=== PATIENT | female | born 1930 | race Caucasian/White ===

== ENCOUNTER 2018-09-06 10:42 | Emergency (ER) | payer MEDICARE, OTHER ==
[~2018-09-06] VITALS: Ht 160 cm; Wt 64.9 kg
[~2018-09-06 10:42] MED LIST: ALBU90I; ALBU90OI INH; ALIS150T PO; AMLO10 PO; ASPI81CH; ASPI81CH PO; ASPI81EC PO; AZIT250 PO; BISA10S PR; CARV6.25 PO; DIGO.125 PO; DIPH50 PO; DOCU100 PO; DOXA4; DOXA4 PO; ERGO400 PO; ERGO50000 PO; FERR325 PO; FURO40 PO; GLUCHON PO; GUAI100SY PO; Garlic Oil1000 MG PO; IPRAOI INH; LEVSOD100 PO; LEVSOD125 PO; LEVSOD50 PO; LIOT25 PO; LORA10ER PO; LOSA25 PO; MAGCHL64ER PO; MAGOXI400 PO; MECL12.5 PO; METO25ER; METO25ER PO; METO50 PO; NEBI10 PO; NITR.4SL SL; OLME40 PO; OLME5TAB PO; ONDA4 PO; ONDA8ODT MM; POLY17UD PO; POTCHL20ER PO; PRAV20 PO; PRED20 PO; RXONDA4ODT MM; SPIR25 PO; THYR60; THYR60 PO; Tylenol325 MG PO; VITAMIN D2000 UNIT PO; XARELTO PO; XARELTO15 MG PO
== END 2018-09-06 13:15 | disposition home or self-care (01) ==
LOC: ER 10:42
DX: I10 Essential (primary) hypertension (principal); I48.91 Unspecified atrial fibrillation; Z88.5 Allergy status to narcotic agent; Z88.8 Allergy status to other drugs, medicaments and biological substances; Z88.0 Allergy status to penicillin; Z91.048 Other nonmedicinal substance allergy status; Z79.899 Other long term (current) drug therapy
CPT/HCPCS: 93005; 93010; 99283-25

== ENCOUNTER → 2019-01-12 | Outpatient (CLI) | payer MEDICARE, OTHER | END | disposition home or self-care (01) | LOC: LAB SHORT 14:10 → LAB EV 14:10 | DX: R10.30 Lower abdominal pain, unspecified (principal) | CPT/HCPCS: 87086 ==

== ENCOUNTER → 2019-01-14 | Outpatient (CLI) | payer MEDICARE, OTHER | END | disposition home or self-care (01) | LOC: LAB 11:22 → LAB SHORT 11:22 → LAB FUT 01-15 10:55 → EDSTATUS 01-15 10:55 | DX: R10.30 Lower abdominal pain, unspecified (principal) | CPT/HCPCS: 87086 ==

== ENCOUNTER → 2019-06-13 | Outpatient (CLI) | payer MEDICARE, OTHER ==
[2019-06-13 13:43] LABS: BASOPHILS ABSOLUTE AUTO 0.01 K/mm3 (0.00-0.23); BASOPHILS PERCENT AUTO 0 % (0-2); EOSINOPHILS ABSOLUTE AUTO 0.08 K/mm3 (0.00-0.68); EOSINOPHILS PERCENT AUTO 1 % (0-6); Hematocrit 40.8 % (33.0-51.0); Hemoglobin 13.5 g/dL (11.5-16.0); IMMATURE GRAN ABSOLUTE AUTO 0.04 K/mm3 (0.00-0.10); IMMATURE GRAN PERCENT AUTO 1 % (0-1); LYMPHOCYTES ABSOLUTE AUTO 0.83 K/mm3 (0.84-5.20); LYMPHOCYTES PERCENT AUTO 15 % (21-46); MONOCYTES ABSOLUTE AUTO 0.53 K/mm3 (0.16-1.47); MONOCYTES PERCENT AUTO 9 % (4-13); Mean Corpuscular HGB 31.6 pg (26.0-34.0); Mean Corpuscular HGB Conc 33.1 g/dL (31.5-36.5); Mean Corpuscular Volume 96 fL (80-100); Mean Platelet Volume 11.9 fL (9.1-12.4); NEUTROPHILS ABSOLUTE AUTO 4.22 K/mm3 (1.96-9.15); NEUTROPHILS PERCENT AUTO 74 % (41-73); Platelet Count 121 K/mm3 (150-400); RDW Coefficient Variation 14.4 % (11.7-14.2); RDW Standard Deviation 49.7 fL (35.1-46.3); Red Blood Cell Count 4.27 M/mm3 (3.80-5.20); White Blood Cell Count 5.71 K/mm3 (4.00-11.30)
[2019-06-13 13:49] LABS: Bun/Creatinine Ratio 17.1 (12.0-20.0); Calcium, Blood 8.7 mg/dL (8.5-10.1); Creatinine, Blood 1.17 mg/dL (0.40-1.00); Potassium, Blood 3.7 mmol/L (3.5-5.5)
== END | disposition home or self-care (01) ==
LOC: LAB SHORT 13:39 → LAB EV 13:39
PROVIDERS: Family Medicine
DX: R04.2 Hemoptysis (principal)
CPT/HCPCS: 80048; 85025; 85379

== ENCOUNTER 2019-11-09 15:14 | Emergency (ER) | payer MEDICARE, OTHER ==
[~2019-11-09] VITALS: Ht 160 cm; Wt 59.0 kg
[2019-11-09 16:26] LABS: Hemoglobin 14.2 g/dL (11.5-16.0); Mean Corpuscular HGB 31.6 pg (26.0-34.0); Mean Corpuscular Volume 96 fL (80-100); Platelet Count 113 K/mm3 (150-400); RDW Coefficient Variation 13.3 % (11.7-14.2); RDW Standard Deviation 47.6 fL (35.1-46.3); White Blood Cell Count 6.38 K/mm3 (4.00-11.30)
[2019-11-09 16:48] LABS: International Normalized Ratio 1.12; Prothrombin Time Results 11.9 Sec (9.7-11.5)
[2019-11-09 16:52] LABS: Bun/Creatinine Ratio 26.9 (12.0-20.0); Calcium, Blood 10.1 mg/dL (8.5-10.1); Creatinine, Blood 1.34 mg/dL (0.40-1.00); Potassium, Blood 3.5 mmol/L (3.5-5.5)
[2019-11-09 17:09] LABS: BASOPHILS PERCENT MAN 0 % (0-2); EOSINOPHILS ABSOLUTE MAN 0.19 K/mm3 (0.00-0.68); EOSINOPHILS PERCENT MAN 3 % (0-6); LYMPHOCYTES % ATYPICAL MANUAL 1 % (0-0); LYMPHOCYTES ABSOLUTE MAN 1.27 K/mm3 (0.84-5.20); LYMPHOCYTES PERCENT MAN 19 % (21-46); MONOCYTES ABSOLUTE MAN 0.63 K/mm3 (0.16-1.47); MONOCYTES PERCENT MAN 10 % (4-13); MYELOCYTE ABSOLUTE MAN 0.06 K/mm3 (0.00-0.00); MYELOCYTE PERCENT MAN 1 % (0-0); NEUTROPHILS ABSOLUTE MAN 4.21 K/mm3 (1.96-9.15); SEG NEUTROPHILS PERCENT MAN 66 % (41-73); TOTAL CELLS COUNTED 100
--- NOTE | 2019-11-09 18:48 | NUR ---
ED Palliative Care Consult Spoke with Dr Sandhu and MALIHA Kunz. Discussed case and concerns. Pt had a fall and fracture left lower rib. Pt does not meet admitting criteria and would benefit from assistance in the home. Pt is A&O and reports significant pain. Engaged in therapeutic listening as Pt expresses concerns regarding her increased weakness and difficulty caring for herself. Pt reports being on a limited income and can not afford to higher caregivers. Pt is interested in receiving extra support in her home for her safety. Due to her increased weakness and falling, Pt needs assistance with ambulation, dressing, and bathing. Pt is no longer safe to perform these duties on her own. Provided check list and phone number for Aging People with Disabilities. Recieved permission from Pt to call her niece Eboni. Eboni reports having a spare room at her home for Pt until caregiving assistance can be established. Eboni will also help with Pt's needs and help her start the APD process. Pt is agreeable to Eboni's offer. No other concerns reported at this time. Eboni's phone number is [phone] Sandhu regarding Pt's pain. Pt will be provided a prescription for pain medication to take home. Palliative Care will remain available.
[2019-11-09] MEDS ORDERED: Ultram50 MG PO (18:56)
== END 2019-11-09 19:30 | disposition home or self-care (01) ==
LOC: ER 15:14
PROVIDERS: Emergency Medicine
DX: M25.512 Pain in left shoulder (principal); I10 Essential (primary) hypertension; I25.2 Old myocardial infarction; I48.91 Unspecified atrial fibrillation; Z88.0 Allergy status to penicillin; Z88.5 Allergy status to narcotic agent; Z91.048 Other nonmedicinal substance allergy status; Z88.6 Allergy status to analgesic agent; Z79.899 Other long term (current) drug therapy; W06.XXXA Fall from bed, initial encounter
CPT/HCPCS: 36415; 70450; 71101; 72170; 73030; 80048; 85025; 85610; 93005; 93010; 99284-25

== ENCOUNTER 2020-05-17 15:02 | Emergency (ER) | payer MEDICARE, OTHER ==
[~2020-05-17] VITALS: Ht 160 cm; Wt 54.4 kg
[~2020-05-17 15:02] MED LIST changes: +Ultram50 MG PO
[2020-05-17 17:25] LABS: BASOPHILS ABSOLUTE AUTO 0.03 K/mm3 (0.00-0.23); BASOPHILS PERCENT AUTO 0 % (0-2); EOSINOPHILS ABSOLUTE AUTO 0.18 K/mm3 (0.00-0.68); EOSINOPHILS PERCENT AUTO 2 % (0-6); Hematocrit 46.6 % (33.0-51.0); Hemoglobin 15.2 g/dL (11.5-16.0); IMMATURE GRAN ABSOLUTE AUTO 0.04 K/mm3 (0.00-0.10); IMMATURE GRAN PERCENT AUTO 1 % (0-1); LYMPHOCYTES PERCENT AUTO 12 % (21-46); MONOCYTES ABSOLUTE AUTO 0.77 K/mm3 (0.16-1.47); MONOCYTES PERCENT AUTO 9 % (4-13); Mean Corpuscular HGB 30.9 pg (26.0-34.0); Mean Corpuscular HGB Conc 32.6 g/dL (31.5-36.5); Mean Corpuscular Volume 95 fL (80-100); Mean Platelet Volume 11.9 fL (9.1-12.4); NEUTROPHILS ABSOLUTE AUTO 6.72 K/mm3 (1.96-9.15); NEUTROPHILS PERCENT AUTO 76 % (41-73); Platelet Count 107 K/mm3 (150-400); RDW Coefficient Variation 13.2 % (11.7-14.2); RDW Standard Deviation 46.6 fL (35.1-46.3); Red Blood Cell Count 4.92 M/mm3 (3.80-5.20); White Blood Cell Count 8.84 K/mm3 (4.00-11.30)
[2020-05-17 17:44] LABS: Alanine Aminotransfer (ALT/SGP 13 U/L (12-78); Albumin, Blood 3.5 g/dL (3.4-5.0); Albumin/Globulin Ratio 0.9 (0.8-1.8); Alk Phos 77 U/L (50-136); Anion Gap 7 mmol/L (6-16); Aspartate Aminotrans (AST/SGOT 30 U/L (12-37); Bilirubin, Total 3.5 mg/dL (0.1-1.0); Blood Urea Nitrogen 23 mg/dL (8-24); Bun/Creatinine Ratio 25.1 (12.0-20.0); CO2, Blood 24 mmol/L (21-32); Chloride, Blood 103 mmol/L (98-108); Creatinine, Blood 0.92 mg/dL (0.40-1.00); Globulin, Blood 4.1 g/dL (2.2-4.0); Glomerular Filtration Rate >60 (60-); Glucose, Blood 88 mg/dL (70-99); Potassium, Blood 5.6 mmol/L (3.5-5.5); Sodium, Blood 134 mmol/L (136-145); Total Protein, Blood 7.6 g/dL (6.4-8.2)
[2020-05-17 18:51] LABS: Source, Urine Clean Catch
[2020-05-17 19:05] LABS: Appearance, Urine Hazy (Clear); Bilirubin, Urine Neg (Neg); Blood, Urine 1+ (Neg); Color, Urine Amber (P-Yellow); Glucose Qualitative, Urine Neg (Neg); Ketones, Urine 3+ (Neg); Leukocyte Esterase, Urine 3+ (Neg); Nitrite, Urine Neg (Neg); Protein, Urine 2+ (Neg); Urobilinogen, Urine 2+ (Normal)
[2020-05-17 19:14] LABS: White Blood Cells, Urine TNTC /hpf (0-5)
[2020-05-17 19:15] LABS: Bacteria Few /hpf; Red Blood Cells, Urine 0-2 /hpf (0-2); Squamous Epithelial Cells Few /hpf (Few)
[2020-05-17] MEDS ORDERED: Percocet 5-3251 EACH PO (20:24)
[2020-05-17] MEDS ORDERED: Keflex500 MG PO (20:24)
[2020-05-18] MEDS ORDERED: SPIRONOLACTONE25 MG PO (21:12)
== END 2020-05-17 20:45 | disposition home or self-care (01) ==
LOC: ER 15:02
PROVIDERS: Physician Assistant
DX: M25.551 Pain in right hip (principal); N39.0 Urinary tract infection, site not specified; R41.0 Disorientation, unspecified; I10 Essential (primary) hypertension; I48.91 Unspecified atrial fibrillation; I25.2 Old myocardial infarction; E03.9 Hypothyroidism, unspecified; Z88.5 Allergy status to narcotic agent; Z88.6 Allergy status to analgesic agent; Z91.09 Other allergy status, other than to drugs and biological substances; Z88.0 Allergy status to penicillin; Z88.8 Allergy status to other drugs, medicaments and biological substances; Z79.899 Other long term (current) drug therapy; Z95.0 Presence of cardiac pacemaker; W01.190A Fall on same level from slipping, tripping and stumbling with subsequent striking against furniture, initial encounter
CPT/HCPCS: 36415; 70450; 73502; 80053; 81001; 85025; 87086; 96374; 99284-25; A9270-GY; J3010

== ENCOUNTER 2020-05-18 15:28 | Inpatient (IN) | payer MEDICARE, OTHER ==
[~2020-05-18] VITALS: Ht 160 cm; Wt 59.0 kg
[~2020-05-18 15:28] MED LIST changes: +Keflex500 MG PO; +Percocet 5-3251 EACH PO
[2020-05-18 16:01] LABS: BASOPHILS ABSOLUTE AUTO 0.03 K/mm3 (0.00-0.23); BASOPHILS PERCENT AUTO 0 % (0-2); EOSINOPHILS PERCENT AUTO 0 % (0-6); Hematocrit 41.6 % (33.0-51.0); Hemoglobin 13.6 g/dL (11.5-16.0); IMMATURE GRAN ABSOLUTE AUTO 0.05 K/mm3 (0.00-0.10); IMMATURE GRAN PERCENT AUTO 1 % (0-1); LYMPHOCYTES ABSOLUTE AUTO 0.56 K/mm3 (0.84-5.20); LYMPHOCYTES PERCENT AUTO 6 % (21-46); MONOCYTES ABSOLUTE AUTO 0.71 K/mm3 (0.16-1.47); MONOCYTES PERCENT AUTO 8 % (4-13); Mean Corpuscular HGB 30.6 pg (26.0-34.0); Mean Corpuscular HGB Conc 32.7 g/dL (31.5-36.5); Mean Corpuscular Volume 94 fL (80-100); Mean Platelet Volume 12.5 fL (9.1-12.4); NEUTROPHILS PERCENT AUTO 86 % (41-73); Platelet Count 127 K/mm3 (150-400); RDW Coefficient Variation 13.2 % (11.7-14.2); RDW Standard Deviation 45.2 fL (35.1-46.3); Red Blood Cell Count 4.45 M/mm3 (3.80-5.20); White Blood Cell Count 9.45 K/mm3 (4.00-11.30)
[2020-05-18 16:19] LABS: Albumin, Blood 3.2 g/dL (3.4-5.0); Albumin/Globulin Ratio 0.9 (0.8-1.8); Bilirubin, Total 2.8 mg/dL (0.1-1.0); Bun/Creatinine Ratio 27.9 (12.0-20.0); Calcium, Blood 9.5 mg/dL (8.5-10.1); Creatinine, Blood 1.04 mg/dL (0.40-1.00); Globulin, Blood 3.7 g/dL (2.2-4.0); Potassium, Blood 4.1 mmol/L (3.5-5.5); Total Protein, Blood 6.9 g/dL (6.4-8.2)
[2020-05-18 17:31] LABS: Troponin I 0.041 ng/mL (0.000-0.040)
[2020-05-18 17:32] LABS: Thyroid Stimulating Hormone 0.132 uIU/mL (0.360-4.800)
[2020-05-18 17:50] LABS: Base Excess Venous 2.7 mmol/L; Bicarbonate Venous 26.6 mmol/L (24.0-30.0); PCO2 Venous 41.1 mmHg (38-42); PO2 Venous 155 mmHg (38-42); pH Blood Venous 7.43 (7.34-7.37)
[2020-05-18 18:59] LABS: Source, Urine Voided
[2020-05-18 19:11] LABS: Appearance, Urine Clear (Clear); Blood, Urine 1+ (Neg); Color, Urine Amber (P-Yellow); Glucose Qualitative, Urine Neg (Neg); Ketones, Urine 3+ (Neg); Leukocyte Esterase, Urine 1+ (Neg); Nitrite, Urine Neg (Neg); Protein, Urine 2+ (Neg); Urobilinogen, Urine 3+ (Normal)
[2020-05-18 19:28] LABS: Bilirubin, Urine 1+ (Neg)
[2020-05-18 19:29] LABS: Bacteria Few /hpf; Red Blood Cells, Urine 0-2 /hpf (0-2)
[2020-05-18 19:30] LABS: Mucus Light (0-Heavy); Squamous Epithelial Cells Mod /hpf (Few)
[2020-05-18] MEDS ORDERED: SPIRONOLACTONE25 MG PO (21:12)
--- NOTE | 2020-05-19 05:33 | NUR ---
NODULIZER SUMMARY Patient alert and oriented X3, CHENEGA, aware of her weakness and determined to have "no more falls". Currently in droplet isolation due to waiting for results of send out Covid test. Patient very painful if raised above 30 degrees in bed from about shoulders to buttocks. She has a family member who is her caregiver. Her name is Eboni (niece) also a sister Lidia. Both should be included in any education given to the patient. Skin tear from recent fall on left elbow. Mepilex applied.
[2020-05-19 08:35] LABS: BASOPHILS ABSOLUTE AUTO 0.04 K/mm3 (0.00-0.23); BASOPHILS PERCENT AUTO 1 % (0-2); EOSINOPHILS ABSOLUTE AUTO 0.28 K/mm3 (0.00-0.68); EOSINOPHILS PERCENT AUTO 4 % (0-6); Hematocrit 41.7 % (33.0-51.0); Hemoglobin 13.9 g/dL (11.5-16.0); IMMATURE GRAN ABSOLUTE AUTO 0.04 K/mm3 (0.00-0.10); IMMATURE GRAN PERCENT AUTO 1 % (0-1); LYMPHOCYTES ABSOLUTE AUTO 1.07 K/mm3 (0.84-5.20); LYMPHOCYTES PERCENT AUTO 16 % (21-46); MONOCYTES ABSOLUTE AUTO 0.58 K/mm3 (0.16-1.47); MONOCYTES PERCENT AUTO 8 % (4-13); Mean Corpuscular HGB 30.8 pg (26.0-34.0); Mean Corpuscular HGB Conc 33.3 g/dL (31.5-36.5); Mean Corpuscular Volume 93 fL (80-100); Mean Platelet Volume 12.5 fL (9.1-12.4); NEUTROPHILS ABSOLUTE AUTO 4.86 K/mm3 (1.96-9.15); NEUTROPHILS PERCENT AUTO 71 % (41-73); Platelet Count 105 K/mm3 (150-400); RDW Coefficient Variation 13.2 % (11.7-14.2); RDW Standard Deviation 44.7 fL (35.1-46.3); Red Blood Cell Count 4.51 M/mm3 (3.80-5.20); White Blood Cell Count 6.87 K/mm3 (4.00-11.30)
[2020-05-19 08:45] LABS: Anion Gap 3 mmol/L (6-16); Blood Urea Nitrogen 32 mg/dL (8-24); Bun/Creatinine Ratio 35.9 (12.0-20.0); CO2, Blood 29 mmol/L (21-32); Calcium, Blood 9.6 mg/dL (8.5-10.1); Chloride, Blood 105 mmol/L (98-108); Creatinine, Blood 0.89 mg/dL (0.40-1.00); Glomerular Filtration Rate >60 (60-); Glucose, Blood 88 mg/dL (70-99); Potassium, Blood 3.6 mmol/L (3.5-5.5); Sodium, Blood 137 mmol/L (136-145)
--- NOTE | 2020-05-19 16:07 | NUR ---
summary PT IS A/O X4 PLEASANT/COOPERATIVE. SHE STATE BACK PAIN w MOVEMENT, STATE TOO PAINFUL TO AMBULATE OR BR WT @ THIS TIME S/P FALL @ HOME. HAVE GIVEN PRN NORCO & TRAMADOL TODAY FOR PAIN RELEIF/CONTROL SHE PREFERS TO LAY ALMOST FLAT FOR BEST COMFORT. HAS DECLINED OOB TO CHAIR. SHE DID PARTICIPATE w [facility] TODAY. HER SISTER HAS BEEN IN TO VISIT MOST OF DAY, PRESENT WHEN DR MOSS ROUNDED. CT SPINE/PELVIS NEGATIVE FOR FX'S. DR INFORM HER PROBABLE SNF PRIOR TO GOING HOME WHEN APPROP.
--- NOTE | 2020-05-20 16:47 | NUR ---
SUMMARY PT STATE CONTINUING BACK PAIN THIS AM, 04/02, PRN NORCO GIVEN FOR RELIEF, SHE HAS STATED PAIN CONTROL @ REST T/O REMAINDER OF DAY. SHE STATE DIZZINESS, STATE @ HOME TAKES DAILY MECLAZINE PRESCRIBED BY HER DISTILLERY WORKER, DR MOSS NOTIFIED, IN TO ASSESS PT, PLACE ORDER, GIVEN. ALSO ADDED PRILOSEC PER PT REQUEST. PT IS A/O X4, PLEASANT AFFECT. VSS. +BM TODAY. CANDLE POURER PROVIDE BEDBATH.
--- NOTE | 2020-05-21 06:32 | NUR ---
PUBLIC HEALTH OFFICER SUMMARY Slept well. woke only when staff in to reposition in bed. Minimal complaints of pain overnight, however, she was uncomfortable each time we moved her even minimally. Barrier cream to bottom as urine was really soaking the brief each time she would urinate. As usual, very pleasant and cooperative with care.
[2020-05-21] MEDS ORDERED: MECL25 PO (13:43)
[2020-05-21] MEDS ORDERED: HYDR1TAB94 PO (13:44)
--- NOTE | 2020-05-21 15:29 | NUR ---
Spiritual care visit conducted. Patient is lying in bed and alert. Patient's sister, Lidia, is present. Patient talks about how she remembers me from a prior visit and is glad I was able visit. Patient tells me about her falls, her medical issues and the plan to move patient to [facility] for rehab. very soon. Patient also talks at length about her family and her delroy. Patient admits to being cranky when she is in pain and then she feels bad about it. I listen empathically, normalize patient's experience, and provide companionship, pastoral veterans' counselor and prayer. Patient responds well and shows signs of an elevated mood. I will continue to remain available to patient and family.
--- NOTE | 2020-05-21 16:23 | NUR ---
REPORT GIVEN TO DEMETRIUS [facility]. ANSWER ALL QUESTIONS. NO FEVER UPON D'C. ABLE TO STAND AND PIVOT TO W/C.
--- NOTE | 2020-05-21 16:39 | NUR ---
Initial spiritual care note: Provided prayer and encouragement to Mrs. Rashid. Her sister, Marta, was at bedside. Pt appeared frail and quite weak. Both pt and family report hope she will do well at SNF and return to baseline. Kalee is being d/c later today.
== END 2020-05-21 16:09 | DRG 552 ==
LOC: ER 15:28 → MEDS 15:29 → EDPENDDIS 05-21 13:45 → ENPENDDIS 05-21 13:45 → MEDS 05-21 16:09
PROVIDERS: Emergency Medicine; Nurse Practitioner Acute Care; ADMIT Internal Medicine
DX: M47.816 Spondylosis without myelopathy or radiculopathy, lumbar region (principal); N39.0 Urinary tract infection, site not specified; I48.20 Chronic atrial fibrillation, unspecified; M47.814 Spondylosis without myelopathy or radiculopathy, thoracic region; I10 Essential (primary) hypertension; Z79.01 Long term (current) use of anticoagulants; M16.11 Unilateral primary osteoarthritis, right hip; H81.10 Benign paroxysmal vertigo, unspecified ear; E03.9 Hypothyroidism, unspecified
CPT/HCPCS: 36415; 51701; 71045; 72128; 72131; 72192; 80048; 80053; 81001; 82803; 83605; 84443; 84484; 85025; 87086; 93005; 93010; 94760; 97110; 97112; 97162; 97166; 97530; 99285-25; A9270; A9270-GY; G0378; U0003

== ENCOUNTER 2020-08-05 22:49 | Observation (INO) | payer MEDICARE, OTHER ==
[~2020-08-05] VITALS: Ht 160 cm; Wt 59.1 kg
[~2020-08-05 22:49] MED LIST changes: +HYDR1TAB94 PO; +MECL25 PO; +SPIRONOLACTONE25 MG PO
[2020-08-05 23:38] LABS: BASOPHILS ABSOLUTE AUTO 0.04 K/mm3 (0.00-0.23); BASOPHILS PERCENT AUTO 1 % (0-2); EOSINOPHILS PERCENT AUTO 2 % (0-6); Hematocrit 41.4 % (33.0-51.0); IMMATURE GRAN ABSOLUTE AUTO 0.04 K/mm3 (0.00-0.10); IMMATURE GRAN PERCENT AUTO 1 % (0-1); LYMPHOCYTES ABSOLUTE AUTO 1.12 K/mm3 (0.84-5.20); LYMPHOCYTES PERCENT AUTO 20 % (21-46); MONOCYTES ABSOLUTE AUTO 0.71 K/mm3 (0.16-1.47); MONOCYTES PERCENT AUTO 13 % (4-13); Mean Corpuscular HGB 30.4 pg (26.0-34.0); Mean Corpuscular HGB Conc 31.4 g/dL (31.5-36.5); Mean Corpuscular Volume 97 fL (80-100); Mean Platelet Volume 11.9 fL (9.1-12.4); NEUTROPHILS ABSOLUTE AUTO 3.48 K/mm3 (1.96-9.15); NEUTROPHILS PERCENT AUTO 64 % (41-73); Platelet Count 146 K/mm3 (150-400); RDW Coefficient Variation 14.7 % (11.7-14.2); RDW Standard Deviation 52.7 fL (35.1-46.3); Red Blood Cell Count 4.27 M/mm3 (3.80-5.20); White Blood Cell Count 5.49 K/mm3 (4.00-11.30)
[2020-08-05 23:57] LABS: Alanine Aminotransfer (ALT/SGP 17 U/L (12-78); Albumin, Blood 3.2 g/dL (3.4-5.0); Albumin/Globulin Ratio 0.9 (0.8-1.8); Alk Phos 90 U/L (50-136); Anion Gap 4 mmol/L (6-16); Aspartate Aminotrans (AST/SGOT 36 U/L (12-37); Bilirubin, Total 1.1 mg/dL (0.1-1.0); Blood Urea Nitrogen 18 mg/dL (8-24); Bun/Creatinine Ratio 16.7 (12.0-20.0); CO2, Blood 31 mmol/L (21-32); Calcium, Blood 9.2 mg/dL (8.5-10.1); Chloride, Blood 107 mmol/L (98-108); Creatinine, Blood 1.08 mg/dL (0.40-1.00); Globulin, Blood 3.7 g/dL (2.2-4.0); Glomerular Filtration Rate 51 (60-); Glucose, Blood 101 mg/dL (70-99); Potassium, Blood 4.1 mmol/L (3.5-5.5); Sodium, Blood 142 mmol/L (136-145); Total Protein, Blood 6.9 g/dL (6.4-8.2); Troponin I <0.015 ng/mL (0.000-0.040)
[2020-08-06] MEDS ORDERED: THYR60 PO (02:37)
[2020-08-06 06:47] LABS: BASOPHILS ABSOLUTE AUTO 0.03 K/mm3 (0.00-0.23); BASOPHILS PERCENT AUTO 1 % (0-2); EOSINOPHILS ABSOLUTE AUTO 0.07 K/mm3 (0.00-0.68); EOSINOPHILS PERCENT AUTO 1 % (0-6); Hemoglobin 11.8 g/dL (11.5-16.0); IMMATURE GRAN ABSOLUTE AUTO 0.03 K/mm3 (0.00-0.10); IMMATURE GRAN PERCENT AUTO 1 % (0-1); LYMPHOCYTES PERCENT AUTO 18 % (21-46); MONOCYTES ABSOLUTE AUTO 0.57 K/mm3 (0.16-1.47); MONOCYTES PERCENT AUTO 12 % (4-13); Mean Corpuscular HGB 31.2 pg (26.0-34.0); Mean Corpuscular HGB Conc 31.9 g/dL (31.5-36.5); Mean Corpuscular Volume 98 fL (80-100); Mean Platelet Volume 11.6 fL (9.1-12.4); NEUTROPHILS ABSOLUTE AUTO 3.35 K/mm3 (1.96-9.15); NEUTROPHILS PERCENT AUTO 68 % (41-73); Platelet Count 125 K/mm3 (150-400); RDW Coefficient Variation 14.6 % (11.7-14.2); Red Blood Cell Count 3.78 M/mm3 (3.80-5.20); White Blood Cell Count 4.95 K/mm3 (4.00-11.30)
[2020-08-06 07:00] LABS: International Normalized Ratio 1.36; Prothrombin Time Results 14.3 Sec (9.7-11.5)
[2020-08-06 07:08] LABS: Albumin, Blood 2.9 g/dL (3.4-5.0); Albumin/Globulin Ratio 0.9 (0.8-1.8); Bilirubin, Total 1.2 mg/dL (0.1-1.0); Bun/Creatinine Ratio 16.2 (12.0-20.0); Calcium, Blood 9.1 mg/dL (8.5-10.1); Creatinine, Blood 0.99 mg/dL (0.40-1.00); Globulin, Blood 3.2 g/dL (2.2-4.0); Potassium, Blood 3.7 mmol/L (3.5-5.5); Total Protein, Blood 6.1 g/dL (6.4-8.2)
[2020-08-06 07:15] LABS: Troponin I 0.016 ng/mL (0.000-0.040)
--- NOTE | 2020-08-06 07:44 | NUR ---
SHIFT SUMMARY PATIENT ALERT AND ORIENTED. PATIENT REPORTS THAT CHEST PAIN HAS PERSISTED OVERNIGHT BUT IS MANAGEABLE. WEAK AND OCCASIONALLY UNSTEADY BUT ABLE TO AMULATE WITH MINIMAL ASSISTANCE WITH A FRONT WHEEL WALKER. IV PATENT AND FLUSHED. BED IN LOWEST POSITION WITH WHEELS LOCKED AND ALARM ON. CALL LIGHT WITHIN REACH. REPORT GIVEN TO ONCOMING RN.
[2020-08-06] MEDS ORDERED: NITR.4SL SL (13:01)
--- NOTE | 2020-08-06 14:06 | NUR ---
PT DISCHARGED @ APPROX 1406 VIA WHEELCHAIR BY CANDLES POURER. SISTERLOIDA @ SIDE DURING DISCHARGE AND DISCHARGE INSTRUCTIONS. IV REMOVED AND SITE APPEARS WNL. DISCHARGE INSTRUCTIONS WERE REVIEWED WITH PATIENT, SHE VERBALIZED UNDERSTANDING. BELONGINGS WERE GIVEN TO PT.
== END 2020-08-06 14:05 | disposition home or self-care (01) ==
LOC: ER 22:49 → MEDS 22:50 → ER 08-06 01:31 → MEDS 08-06 01:31 → ENPENDDIS 08-06 12:51 → MEDS 08-06 14:05
PROVIDERS: Emergency Medicine; ADMIT Internal Medicine
DX: R07.9 Chest pain, unspecified (principal); I12.9 Hypertensive chronic kidney disease with stage 1 through stage 4 chronic kidney disease, or unspecified chronic kidney disease; N18.30 Chronic kidney disease, stage 3 unspecified; I48.91 Unspecified atrial fibrillation; I25.10 Atherosclerotic heart disease of native coronary artery without angina pectoris; I25.2 Old myocardial infarction; E03.9 Hypothyroidism, unspecified; M19.032 Primary osteoarthritis, left wrist; Z95.0 Presence of cardiac pacemaker; Z95.2 Presence of prosthetic heart valve; Z88.0 Allergy status to penicillin; Z88.5 Allergy status to narcotic agent; Z88.6 Allergy status to analgesic agent; Z88.8 Allergy status to other drugs, medicaments and biological substances; Z91.048 Other nonmedicinal substance allergy status; Z79.01 Long term (current) use of anticoagulants; Z79.899 Other long term (current) drug therapy; Z23 Encounter for immunization; Z20.828 Contact with and (suspected) exposure to other viral communicable diseases
CPT/HCPCS: 36415; 71045; 73100; 80053; 82550; 84484; 85025; 85610; 93005; 93010; 99285-25; G0378